=== PATIENT | female | born 1990 | race Caucasian/White ===

== ENCOUNTER 2017-08-17 05:17 | Observation (INO) | payer BC, OTHER ==
[2017-08-15 08:34] LABS: BASOPHILS # (AUTO) 0.01 x10^3/uL (0-0.1); BASOPHILS % (AUTO) 0 % (0-1); EOSINOPHILS # (AUTO) 0.08 x10^3/uL (0-0.4); EOSINOPHILS % (AUTO) 2 % (1-7); LYMPHOCYTES # (AUTO) 1.55 x10^3/uL (1-3.4); LYMPHOCYTES % (AUTO) 29 % (22-44); MD NO; MEAN CORPUSCULAR HEMOGLOBIN 30.9 pg (27.0-34.8); MEAN CORPUSCULAR HGB CONC 33.9 g/dL (32.4-35.8); MEAN CORPUSCULAR VOLUME 91.2 fL (80-100); MEAN PLATELET VOLUME 8.3 fL (7.4-10.4); MONOCYTES % (AUTO) 6 % (2-9); NEUTROPHILS # (AUTO) 3.44 x10^3/uL (1.8-6.8); NEUTROPHILS % (AUTO) 64 % (42-75); PLATELET COUNT 284 x10^3/uL (130-400); RED BLOOD COUNT 4.74 x10^6/uL (3.82-5.3); RED CELL DISTRIBUTION WIDTH 13.3 % (9.6-15.2)
[2017-08-15 08:44] LABS: ALANINE AMINOTRANSFERASE 23 U/L (12-78); ANION GAP 6 mmol/L (5-15); CALCIUM 8.5 mg/dL (8.5-10.1); CHLORIDE 109 mmol/L (98-107); CREATININE 0.82 mg/dL (0.55-1.02)
[2017-08-15 08:48] LABS: ALKALINE PHOSPHATASE 56 U/L (45-117); BILIRUBIN,TOTAL 0.5 mg/dL (0.2-1.0); TOTAL PROTEIN 7.8 g/dL (6.4-8.2)
[~2017-08-17] VITALS: Ht 170.2 cm; Wt 81.8 kg
[~2017-08-17 05:17] MED LIST: None at this Time
[2017-08-17] MEDS ORDERED: LACTATED RINGERS 1,000 ML IV SCH (05:53)
[2017-08-17 05:55] VITALS: BP 127/84
[2017-08-17] MEDS ORDERED: MIDAZOLAM 1 MG/ML, 2ML ONE (07:02)
[2017-08-17] MEDS ORDERED: FENTANYL PF 100 MCG/2ML ONE (07:02)
[2017-08-17] MEDS ORDERED: PROPOFOL 10 MG/ML, 20ML ONE (07:06)
[2017-08-17] MEDS ORDERED: BUPIVACAINE/PF 0.25% ONE (07:08)
[2017-08-17] MEDS ORDERED: VASOPRESSIN 20 UNIT/ML, 1ML ONE (07:08)
[2017-08-17] MEDS ORDERED: DEXAMETHASONE 4 MG/ML, 1ML ONE (07:19)
[2017-08-17] MEDS ORDERED: ONDANSETRON ODT 8 MG ONE (07:19)
[2017-08-17] MEDS ORDERED: KETOROLAC 30 MG/1 ML ONE (07:19)
[2017-08-17] MEDS ORDERED: MEPERIDINE/PF 25MG/0.5ML IVPush PRN (07:30)
[2017-08-17] MEDS ORDERED: MORPHINE SULFATE 4 MG/ML, 1ML IVPush PRN (07:30)
[2017-08-17] MEDS ORDERED: ONDANSETRON ODT 8 MG PO PRN (07:30)
[2017-08-17] MEDS ORDERED: HYDROcodone/APAP 7.5-325MG/15ML UDC PO PRN (07:30)
[2017-08-17] MEDS ORDERED: LORazepam 2 MG/ML, 1ML IVPush PRN (07:30)
[2017-08-17] MEDS ORDERED: FENTANYL PF 100 MCG/2ML IV PRN (07:30)
[2017-08-17] MEDS ORDERED: OXYcodone 5 MG/5 ML ORAL.SOL UDC PO PRN (07:30)
[2017-08-17] MEDS ORDERED: PROMETHAZINE 25 MG/ML, 1ML IV PRN (07:30)
[2017-08-17] MEDS ORDERED: ACETAMINOPHEN 325 MG TABLET PO PRN (07:30)
[2017-08-17] MEDS ORDERED: OXYcodone 5 MG/5 ML ORAL.SOL UDC ONE (08:12)
[2017-08-17] MEDS ORDERED: PROMETHAZINE 25 MG/ML, 1ML ONE (08:14)
[2017-08-17] MEDS ORDERED: ONDANSETRON ODT 4 MG PO PRN (10:30)
[2017-08-17] MEDS ORDERED: ONDANSETRON 2MG/ML, 2ML IV PRN (10:30)
[2017-08-17] MEDS ORDERED: KETOROLAC 30 MG/1 ML IV PRN (10:30)
== END 2017-08-17 09:56 | disposition home or self-care (01) ==
LOC: OR 05:17 → 4NOR 05:30 → OR 09:10 → 4NOR 09:10
PROVIDERS: ADMIT Obstetrics & Gynecology; ATTEND Obstetrics & Gynecology
DX: N92.0 Excessive and frequent menstruation with regular cycle (principal); N84.0 Polyp of corpus uteri
CPT/HCPCS: 36415; 58558; 80053; 84703; 85025; 88305; G0378; J1100; J1885; J2250; J2550; J2704; J3010; J3490; Q0162